=== PATIENT | male | born 1955 | race Caucasian/White ===

== ENCOUNTER 2019-12-16 10:42 | Emergency (ER) | payer OTHER ==
--- NOTE | 2019-12-16 10:38 | EDM.PDOC ---
ED HPI GENERAL MEDICAL PROBLEM - General Chief Complaint: Cardiovascular Problem Stated Complaint: COVID + Time Seen by Provider: 12/16/19 10:38 Source of Information: Reports: Patient, Old Records, RN, RN Notes Reviewed History Limitations: Reports: No Limitations - History of Present Illness INITIAL COMMENTS - FREE TEXT/NARRATIVE: Pt presents to ED from home by POV stating that he tested COVID positive 12/14/19 and has worsening shortness of breath and chest discomfort which is worse with even minimal activity. Fever, chest pain, and shortness of breath symptoms started 12/13/19. His breath is somewhat improved if at rest and not talking. He says he had a fever of 101.9F on 12/13/19 but hasn't had a fever since that time. Onset: Gradual Onset Date: 11/15/19 Duration: Constant, Getting Worse Location: Reports: Chest, Generalized Quality: Reports: Ache Severity: Moderate Improves with: Reports: None Worsens with: Reports: Other (Activity/Exertion) Context: Reports: Sick Contact - Related Data Allergies Allergy/AdvReac Type Severity Reaction Status Date / Time No Known Allergies Allergy Verified 09/15/18 10:04 Home Meds: Home Meds L.acidoph,Paracasei, B.lactis [Probiotic] 1 tab PO DAILY 11/05/15 [History] Finasteride 5 mg PO DAILY 09/15/18 [History] Multivitamin [Multi-Vitamin Daily] 1 tab PO DAILY 09/15/18 [History] traZODone HCl [Trazodone HCl] 100 mg PO BEDTIME 09/15/18 [History] Past Medical History - Past Health History Medical/Surgical History: Denies Medical/Surgical History HEENT History: Reports: None Cardiovascular History: Reports: None Respiratory History: Reports: None Gastrointestinal History: Reports: Hepatitis, Other (See Below) Other Gastrointestinal History: rectal bleed Genitourinary History: Reports: Prostate Disorder Musculoskeletal History: Reports: Arthritis Neurological History: Reports: None Psychiatric History: Reports: Addiction Endocrine/Metabolic History: Reports: None Hematologic History: Reports: None Immunologic History: Reports: None Oncologic (Cancer) History: Reports: None Dermatologic History: Reports: None - Infectious Disease History Infectious Disease History: Reports: Measles - Past Surgical History HEENT Surgical History: Reports: Tonsillectomy GI Surgical History: Reports: Other (See Below) Other GI Surgeries/Procedures: colon resection Musculoskeletal Surgical History: Reports: Shoulder Surgery Social & Family History - Family History Cardiac: Reports: Afib, CAD, Heart Failure, High Cholesterol, Hypertension, IA - Tobacco Use Smoking Status *Q: Never Smoker - Recreational Drug Use Recreational Drug Use: No - Living Situation & Occupation Living situation: Reports: ED ROS GENERAL - Review of Systems Review Of Systems: Comprehensive ROS is negative, except as noted in HPI. ED EXAM, GENERAL - Physical Exam Exam: See Below Exam Limited By: No Limitations General Appearance: Alert, Other (Acutely ill but non-toxic appearing) Eye Exam: Bilateral Eye: Normal Inspection Nose: Normal Inspection, Normal Mucosa, No Blood Throat/Mouth: Normal Inspection, Normal Lips, Normal Teeth, Normal Gums, Normal Oropharynx, Normal Voice, No Airway Compromise Head: Atraumatic, Normocephalic Neck: Normal Inspection, Supple, Non-Tender, Full Range of Motion Respiratory/Chest: No Respiratory Distress, Lungs Clear, Normal Breath Sounds, No Accessory Muscle Use, Chest Non-Tender, Other (Increased work of breathing). No: Crackles, Rales, Rhonchi, Wheezing, Stridor Cardiovascular: Normal Peripheral Pulses, No Edema, No JVD, No Murmur, Tachycardia, Irregularly Irregular GI/Abdominal: Normal Bowel Sounds, Soft, Non-Tender, No Organomegaly, No Distention, No Abnormal Bruit, No Mass Back Exam: Normal Inspection, Full Range of Motion, NT Extremities: Normal Inspection, Normal Range of Motion, Non-Tender, Normal Capillary Refill, No Pedal Edema Neurological: Alert, Oriented, CN II-XII Intact, Normal Cognition, No Motor/Sensory Deficits Psychiatric: Normal Affect, Normal Mood Skin Exam: Warm, Dry, Intact, Normal Color, No Rash EKG INTERPRETATION EKG Date: 12/16/19 Time: 10:47 Rhythm: A-Fib Rate (Beats/Min): 113 [place]: Normal P-Wave: Absent QRS: Normal ST-T: Normal QT: Normal Comparison: Change From Previous EKG (New onset A-fib) Course - Vital Signs Last Recorded V/S: Last Vital Signs Temp 97.6 F 12/16/19 11:10 Pulse 122 H 12/16/19 11:10 Resp 22 H 12/16/19 11:10 BP 138/83 12/16/19 11:10 Pulse Ox 96 12/16/19 11:10 - Orders/Labs/Meds Orders: Active Orders 24 hr Category Date Time Status EKG 12 Lead [EKG Documentation Completion] [RC] STAT Care 12/16/19 10:39 Active Peripheral IV Care [RC] . DIRECTED Care 12/16/19 10:40 Active CULTURE BLOOD [BC] Stat Lab 12/16/19 10:50 Received CULTURE BLOOD [BC] Stat Lab 12/16/19 10:56 Received FERRITIN [CHEM] Stat Lab 12/16/19 10:50 Received Sodium Chloride 0.9% [Saline Flush] Med 12/16/19 10:39 Active 10 ml FLUSH ASDIRECTED PRN Blood Culture x2 Reflex Set [OM.PC] Stat Oth 12/16/19 10:39 Ordered Peripheral IV Insertion Adult [OM.PC] Stat Oth 12/16/19 10:39 Ordered Medication Orders Sodium Chloride (Saline Flush) 10 ml FLUSH ASDIRECTED PRN PRN Reason: Keep Vein Open Labs: Laboratory Tests 12/16/19 12/16/19 12/16/19 Range/Units 10:38 10:50 10:50 WBC 4.9 L (5.0-10.0) 10^3/uL RBC 5.26 (4.6-6.2) 10^6/uL Hgb 16.1 (14.0-18.0) g/dL Hct 46.9 (40.0-54.0) % MCV 89.2 (80-100) fL MCH 30.6 (27.0-34.0) pg MCHC 34.3 (33.0-35.0) g/dL Plt Count 245 (150-450) 10^3/uL Neut % (Auto) 67.3 (42.2-75.2) % Lymph % (Auto) 21.8 (20.5-50.1) % [place] % (Auto) 9.9 H (2-8) % Eos % (Auto) 0.8 L (1.0-3.0) % Baso % (Auto) 0.2 (0.0-1.0) % PT 9.9 (9.0-12.0) SEC INR 1.0 (0.9-1.2) APTT 27.4 (22.0-34.0) SEC D-Dimer, Quantitative 923 H (0-400) ng/mL Sodium 137 (136-145) mmol/L Potassium 4.1 (3.5-5.1) mmol/L Chloride 99 (98-107) mmol/L Carbon Dioxide 26 (21-32) mmol/L Anion Gap 16.1 H (7-13) mEq/L BUN 14 (7-18) mg/dL Creatinine 1.18 (0.70-1.30) mg/dL Est Cr Clr Drug Dosing TNP Estimated GFR (MDRD) > 60 BUN/Creatinine Ratio 11.9 (No establ ref range) Glucose 196 H (74-99) mg/dL Lactic Acid (0.4-2.0) mmol/L Calcium 8.7 (8.5-10.1) mg/dL Magnesium 2.1 (1.8-2.4) mg/dL Total Bilirubin 0.5 (0.2-1.0) mg/dL AST 15 (15-37) U/L ALT 21 (16-63) U/L Alkaline Phosphatase 70 (46-116) U/L Lactate Dehydrogenase 171 (85-227) U/L Troponin I < 0.017 (0.000-0.056) ng/mL C-Reactive Protein 0.6 (0.0-0.9) mg/dL B-Natriuretic Peptide 91 (0-100) pg/ml Total Protein 7.4 (6.4-8.2) g/dL Albumin 3.6 (3.4-5.0) g/dL Globulin 3.8 Albumin/Globulin Ratio 0.9 TSH, Ultra Sensitive 1.30 (0.36-3.74) uIU/mL 12/16/19 Range/Units 10:50 WBC (5.0-10.0) 10^3/uL RBC (4.6-6.2) 10^6/uL Hgb (14.0-18.0) g/dL Hct (40.0-54.0) % MCV (80-100) fL MCH (27.0-34.0) pg MCHC (33.0-35.0) g/dL Plt Count (150-450) 10^3/uL Neut % (Auto) (42.2-75.2) % Lymph % (Auto) (20.5-50.1) % [place] % (Auto) (2-8) % Eos % (Auto) (1.0-3.0) % Baso % (Auto) (0.0-1.0) % PT (9.0-12.0) SEC INR (0.9-1.2) APTT (22.0-34.0) SEC D-Dimer, Quantitative (0-400) ng/mL Sodium (136-145) mmol/L Potassium (3.5-5.1) mmol/L Chloride (98-107) mmol/L Carbon Dioxide (21-32) mmol/L Anion Gap (7-13) mEq/L BUN (7-18) mg/dL Creatinine (0.70-1.30) mg/dL Est Cr Clr Drug Dosing Estimated GFR (MDRD) BUN/Creatinine Ratio (No establ ref range) Glucose (74-99) mg/dL Lactic Acid 3.5 H* (0.4-2.0) mmol/L Calcium (8.5-10.1) mg/dL Magnesium (1.8-2.4) mg/dL Total Bilirubin (0.2-1.0) mg/dL AST (15-37) U/L ALT (16-63) U/L Alkaline Phosphatase (46-116) U/L Lactate Dehydrogenase (85-227) U/L Troponin I (0.000-0.056) ng/mL C-Reactive Protein (0.0-0.9) mg/dL B-Natriuretic Peptide (0-100) pg/ml Total Protein (6.4-8.2) g/dL Albumin (3.4-5.0) g/dL Globulin Albumin/Globulin Ratio TSH, Ultra Sensitive (0.36-3.74) uIU/mL Meds: Medications Generic Name Dose Route Start Last Admin Trade Name Freq PRN Reason Stop Dose Admin Sodium Chloride 10 ml 12/16/19 10:39 Saline Flush FLUSH ASDIRECTED PRN Keep Vein Open Discontinued Medications Generic Name Dose Route Start Last Admin Trade Name Freq PRN Reason Stop Dose Admin Dexamethasone 6 mg 12/16/19 11:26 Dexamethasone IVPUSH 12/16/19 11:27 ONETIME ONE Enoxaparin Sodium 90 mg 12/16/19 11:27 Lovenox SUBCUT 12/16/19 11:28 ONETIME ONE Departure - Departure Time of Disposition: 12:16 Disposition: DC/Tfer to Acute Hospital 02 Condition: Fair, Serious Clinical Impression: Dyspnea due to COVID-19, New onset atrial fibrillation - Discharge Information *PRESCRIPTION DRUG MONITORING PROGRAM REVIEWED*: Not Applicable *COPY OF PRESCRIPTION DRUG MONITORING REPORT IN PATIENT CRICKET: Not Applicable Forms: ED Department Discharge, Interfacility Transfer EMTALA Sepsis Event Note (ED) - Focused Exam Vital Signs: Vital Signs Temp Pulse Resp BP Pulse Ox 12/16/19 11:10 97.6 F 122 H 22 H 138/83 96 - My Orders Last 24 Hours: My Active Orders 12/16/19 10:39 EKG 12 Lead [EKG Documentation Completion] [RC] STAT Sodium Chloride 0.9% [Saline Flush] 10 ml FLUSH ASDIRECTED PRN Blood Culture x2 Reflex Set [OM.PC] Stat Peripheral IV Insertion Adult [OM.PC] Stat 12/16/19 10:40 Peripheral IV Care [RC] . DIRECTED 12/16/19 10:50 CULTURE BLOOD [BC] Stat FERRITIN [CHEM] Stat 12/16/19 10:56 CULTURE BLOOD [BC] Stat - Assessment/Plan Last 24 Hours: My Active Orders 12/16/19 10:39 EKG 12 Lead [EKG Documentation Completion] [RC] STAT Sodium Chloride 0.9% [Saline Flush] 10 ml FLUSH ASDIRECTED PRN Blood Culture x2 Reflex Set [OM.PC] Stat Peripheral IV Insertion Adult [OM.PC] Stat 12/16/19 10:40 Peripheral IV Care [RC] . DIRECTED 12/16/19 10:50 CULTURE BLOOD [BC] Stat FERRITIN [CHEM] Stat 12/16/19 10:56 CULTURE BLOOD [BC] Stat
[~2019-12-16 10:42] MED LIST: Sodium Chloride 0.9% 10 ML Syringe FLUSH PRN
[2019-12-16] MEDS ORDERED: Dexamethasone 4 MG/ML SDV IVPUSH ONE (11:26)
[2019-12-16] MEDS ORDERED: Enoxaparin 100 MG/1 ML Syringe SUBCUT ONE ×2 (11:27→12:30)
[2019-12-16 11:31] VITALS: BP 138/83; PULSE 122
[2019-12-16 11:51] LABS: ANION GAP 16.1 mEq/L (7-13); CHLORIDE,CL 99 mmol/L (98-107); SODIUM,NA 137 mmol/L (136-145)
[2019-12-16 11:51] LABS: PTT,PARTIAL THROMBOPLSTIN TIME 27.4 SEC (22.0-34.0)
== END 2019-12-16 12:33 ==
LOC: DL.ED 10:42
DX: U07.1 COVID-19 (principal); I48.91 Unspecified atrial fibrillation
CPT/HCPCS: 36415; 80053; 82728; 83605; 83615; 83735; 83880; 84443; 84484; 85025; 85379; 85610; 85730; 86140; 87040; 93005; 96372; 96374; 99285; J1100; J1650; 99284

== ENCOUNTER 2022-03-11 14:25 | Emergency (ER) | payer OTHER ==
[2022-03-11 14:32] VITALS: BP 142/80; PULSE 88
== END 2022-03-11 16:25 | disposition home or self-care (01) ==
LOC: DL.ED 14:25
DX: G89.18 Other acute postprocedural pain (principal); M25.562 Pain in left knee; I48.91 Unspecified atrial fibrillation; Z96.652 Presence of left artificial knee joint; Z79.899 Other long term (current) drug therapy
CPT/HCPCS: 93971; 99283

== ENCOUNTER 2022-10-01 10:34 | Emergency (ER) | payer OTHER ==
[2022-10-01] MEDS ORDERED: Sodium Chloride 0.9% 10 ML Syringe FLUSH PRN (10:48)
[2022-10-01 11:06] LABS: EOSINOPHILS PERCENT AUTO 2.9 % (1.0-3.0); HEMATOCRIT 42.7 % (40.0-54.0); HEMOGLOBIN 14.8 g/dL (14.0-18.0); LYMPHOCYTES PERCENT AUTO 28.4 % (20.5-50.1); MEAN CORPUSCULAR HEMOGLOBIN 31.3 pg (27.0-34.0); MEAN CORPUSCULAR HGB CONC 34.7 g/dL (33.0-35.0); MEAN CORPUSCULAR VOLUME 90.3 fL (80-100); MONOCYTES PERCENT AUTO 9.2 % (2-8); NEUTROPHILS PERCENT AUTO 58.5 % (42.2-75.2); PLATELET COUNT,PLT 261 10^3/uL (150-450); RED BLOOD CELL COUNT 4.73 10^6/uL (4.6-6.2); WHITE BLOOD CELL COUNT,WBC 5.1 10^3/uL (5.0-10.0)
[2022-10-01] MEDS ORDERED: Metoprolol Tartrate 5 MG/5 ML SDV IVPUSH ONE (11:19)
[2022-10-01 11:29] LABS: PROTHROMBIN TIME 10.2 SEC (9.0-12.0); PTT,PARTIAL THROMBOPLSTIN TIME 27.4 SEC (22.0-34.0)
[2022-10-01 11:41] LABS: A/G RATIO 1.4; ALBUMIN 3.8 g/dL (3.4-5.0); ANION GAP 15.2 mEq/L (7-13); BILIRUBIN TOTAL 0.7 mg/dL (0.2-1.0); BUN/CREATININE RATIO 14.7 (No establ ref range); CALCIUM 8.7 mg/dL (8.5-10.1); CREATININE 1.16 mg/dL (0.70-1.30); EST CRCL DRUG DOSING (CG) 58.97 mL/min; MAGNESIUM 2.2 mg/dL (1.8-2.4); POTASSIUM,K 4.2 mmol/L (3.5-5.1); PROTEIN TOTAL,TP 6.6 g/dL (6.4-8.2); TSH ULTRASENSITIVE 0.79 uIU/mL (0.36-3.74)
[2022-10-01 12:37] VITALS: BP 101/78; PULSE 72
== END 2022-10-01 13:33 | disposition home or self-care (01) ==
LOC: DL.ED 10:34
DX: I48.91 Unspecified atrial fibrillation (principal); Z79.899 Other long term (current) drug therapy
CPT/HCPCS: 36415; 71045; 80053; 83735; 83880; 84443; 84484; 85025; 85610; 85730; 93005; 96374; 99285; J3490